=== PATIENT | male | born 1955 | race Caucasian/White ===

== ENCOUNTER → 2018-12-14 | Outpatient (CLI) | payer OTHER | LOC: FIMAGING 09:25 | PROVIDERS: ATTEND Family Medicine Sports Medicine | DX: R04.2 Hemoptysis (principal); I10 Essential (primary) hypertension; R05 Cough; Z87.891 Personal history of nicotine dependence; R91.8 Other nonspecific abnormal finding of lung field ==

== ENCOUNTER 2018-12-28 06:59 | Day surgery (SDC) | payer OTHER ==
[2018-12-28] MEDS ORDERED: NS 500 ML IV ONE (07:13)
[2018-12-28] MEDS ORDERED: ALBUTEROL 3 ML DEYVIAL IH ONE (07:13)
[2018-12-28] MEDS ORDERED: LIDOCAINE 1% 300 MG/30 ML SDV ONE (07:42)
[2018-12-28] MEDS ORDERED: EPINEPHrine 1 MG/ML INJ ONE (07:42)
[2018-12-28] MEDS ORDERED: fentaNYL 100 MCG/2 ML INJ ONE (07:42)
[2018-12-28] MEDS ORDERED: MIDAZOLAM 2 MG/2 ML VIAL ONE (07:42)
[2018-12-28] MEDS ORDERED: LIDOCAINE 2% JELLY 6 ML TOPICAL SYR TP ONE (08:00)
--- NOTE | 2018-12-28 08:20 | PDPROPOC ---
Sedation Plan of Care Sedation Plan of Care: vital signs stable, mental status noted, patient educated of risks, benefits, alternatives, patient can tolerate sedation ASA Classification: ASA 2 Planned drugs: fentanyl, midazolam Mallampati Reference Image: Patient passed 3-3-2 rule?: Yes
--- NOTE | 2018-12-28 08:20 | PDHPUP ---
History & Physical Update H&P update statement: This history and physical update is based on an assessment of the patient which was completed after admission or registration (within 24 hours), but prior to the surgery/procedure. H&P update: H&P reviewed & patient examined, no change in patient's condition since H&P completed
--- NOTE | 2018-12-28 08:55 | SUROPNOTE ---
[facility] Operative Report - Surgery BRONCHOSCOPY PROCEDURE NOTE: Procedure Customer Solutions [employer] Karyn James Hillman MD Procedure: Flexible bronchoscopy with brushings, transbronchial biopsies and bronchoalveolar lavage under moderate sedation Preoperative diagnosis: Hemoptysis, lung mass Postoperative diagnosis: Hemoptysis, lung mass Consent: Obtained from patient prior to procedure after explanation of the procedure, alternatives, risks, and benefits. Anesthesiologist NA Sedation Type: Moderate sedation Sedation Medications: versed 5 mg fentanyl 150 mcg Total time for moderate sedation: 36 min Medications: Afrin: 3 sprays administered in each nare Topical 4% lidocaine: 3 cc via nebulizer, Topical 2% lidocaine jelly: 2 cc via in right nare Topical 1% lidocaine: 6 cc vocal cords, 6 cc tracheobronchial tree Procedure Summary: Time out was performed. The bronchoscope was then introduced via the right nare through the vocal cords and the entire tracheobronchial tree was examined. The main karthikeyan appeared sharp. The right-sided airways were inspected first and were widely patent to the subsegmental level. The left- sided airways were then inspected and also appeared widely patent to the subsegmental Airway mucosa appeared normal throughout. Next a total of 8 endobronchial brushings were performed in the superior segment of the left upper lobe. These were split between cytology and saline specimen cups. Next a formal bronchoalveolar lavage was performed in the superior segment of the left upper lobe instillation of 140 cc of saline and return of 45 cc of translucent blood-tinged fluid. Next endobronchial and transbronchial biopsies were taken in 2 separate segments of the superior segment of the left upper lobe. Scant blood was noted at the end of the procedure which was washed with saline then aspirated. A repeat examination of the airway appeared normal. Patient tolerated the procedure well without complication. Moderate sedation was performed for the procedure under the supervision of myself, the attending physician as well as a dedicated RN who continuously monitored his vitals and cardiopulmonary status. Immediate postoperative chest x-ray was performed and was without a moderate or large pneumothorax. No immediate complications. Patient to remain NPO for 2 hr post administration of lidocaine and moderate sedation and then advance with clears as tolerated. Follow-up in [facility]monary Clinic early January 2019 EBL none Complications: None Items to Follow-up: Endobronchial brushings, endobronchial and transbronchial biopsies as well as BAL fluid sent for cytology, histology, pathology, culture and Aspergillus galactomannan. S James Hillman MD Pulmonary and Critical Care Medicine [phone]
[2018-12-28] MEDS ORDERED: OXYMETAZOLINE 30 ML NASAL SPRAY EACHNARE SCH (09:00)
[2018-12-28 10:24] VITALS: BP 146/86
== END 2018-12-28 10:12 | disposition home or self-care (01) ==
LOC: FSGY 06:59
PROVIDERS: ATTEND Internal Medicine Pulmonary Disease
PROC: 0B988ZX Drainage of Left Upper Lobe Bronchus, Via Natural or Artificial Opening Endoscopic, Diagnostic (ICD-10-PCS; principal; 2018-12-28 08:00)
PROC: 0BB88ZX Excision of Left Upper Lobe Bronchus, Via Natural or Artificial Opening Endoscopic, Diagnostic (ICD-10-PCS; principal; 2018-12-28 08:00)
DX: R91.8 Other nonspecific abnormal finding of lung field (principal); R04.2 Hemoptysis
CPT/HCPCS: J0171; J2250; J3010; J7613

== ENCOUNTER → 2019-02-11 | Outpatient (CLI) | payer OTHER | LOC: FIMAGING 10:49 ==